=== PATIENT | male | born 1990 | race Caucasian/White ===

== ENCOUNTER 2020-11-25 13:06 | Emergency (ER) | payer SELFPAY ==
[2020-11-25] MEDS ORDERED: Sodium Chloride 0.9% 10 ML Syringe FLUSH PRN (13:29)
[2020-11-25] MEDS ORDERED: Ondansetron 4 MG/2 ML SDV IVPUSH ONE (13:29)
[2020-11-25] MEDS ORDERED: Sodium Chloride 0.9% 1,000 ML IV SCH (13:30)
[2020-11-25] MEDS ORDERED: Dicyclomine 10 MG Cap PO ONE (13:41)
[2020-11-25] MEDS ORDERED: Loperamide 2 MG Cap PO ONE (13:41)
[2020-11-25] MEDS ORDERED: FLU VACC QS2020-21(6MOS UP)/PF 60 MCG/0.5 ML SYRINGE IM ONE (13:45)
--- NOTE | 2020-11-25 13:56 | EDM.PDOC ---
ED HPI GENERAL MEDICAL PROBLEM - General Chief Complaint: Abdominal Pain Stated Complaint: VOMITING Time Seen by Provider: 11/25/20 13:29 Source of Information: Reports: Patient, RN Notes Reviewed History Limitations: Reports: No Limitations - History of Present Illness INITIAL COMMENTS - FREE TEXT/NARRATIVE: Patient is a 29-year-old male who presents to the ED for the evaluation of his gastrointestinal symptoms. Patient notes that since Monday, he has not been able to keep much down for food or fluids, he states he is ate a little bit at times, with some fluids staying down. He notes that he has generalized abdominal cramping, and he has had roughly 10 episodes of vomiting and watery diarrhea since Monday. He has had no fevers or chills, cough or shortness of breath. His significant other in the room states that she had tried to give him some Phenergan, but notes that he vomited this up shortly after taking it, so she did not think it had time to absorb in his body. He has not been around any known sick contacts. He has a history of GERD, but has not been able to keep his medications down for GERD the past few days as well. Patient denies any other past medical issues that he is aware of. Abdominal Pain Score (Numeric/FACES): 4 - Related Data Allergies Allergy/AdvReac Type Severity Reaction Status Date / Time Sulfa (Sulfonamide Allergy Severe Hives Verified 11/25/20 13:21 Antibiotics) Home Meds: Home Meds Esomeprazole Magnesium [Nexium] 40 mg PO DAILY 06/05/18 [History] Famotidine [Pepcid] 40 mg PO DAILY 11/25/20 [History] Ondansetron [Zofran ODT] 4 mg PO Q8H PRN #15 tab.dis 11/25/20 [Rx] Sertraline [Zoloft] 150 mg PO BEDTIME 11/25/20 [History] Past Medical History Gastrointestinal History: Reports: GERD Psychiatric History: Reports: Depression Endocrine/Metabolic History: Reports: Obesity/BMI 30+ - Infectious Disease History Infectious Disease History: Reports: Chicken Pox, Novel Coronavirus - Past Surgical History HEENT Surgical History: Reports: Oral Surgery, Tonsillectomy GI Surgical History: Reports: Appendectomy, EGD Social & Family History - Family History Family Medical History: No Pertinent Family History - Tobacco Use Tobacco Use Status *Q: Never Tobacco User Second Hand Smoke Exposure: No - Caffeine Use Caffeine Use: Reports: Soda - Recreational Drug Use Recreational Drug Use: No - Living Situation & Occupation Living situation: Reports: Single, with Significant Other (Girlfriend) 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 ED EXAM, GI/ABD - Physical Exam Exam: See Below Exam Limited By: No Limitations General Appearance: Alert, WD/WN, No Apparent Distress Respiratory/Chest: No Respiratory Distress, Lungs Clear, Normal Breath Sounds, No Accessory Muscle Use, Chest Non-Tender Cardiovascular: Normal Peripheral Pulses, Regular Rate, Rhythm, No Edema GI/Abdominal Exam: Normal Bowel Sounds, Soft, Non-Tender, No Distention, No Mass Extremities: Normal Inspection, Normal Capillary Refill Neurological: Alert, Oriented, Normal Cognition, No Motor/Sensory Deficits Psychiatric: Normal Affect, Normal Mood Skin Exam: Warm, Dry, Intact, Normal Color, No Rash Course - Vital Signs Last Recorded V/S: Last Vital Signs Temp 98 F 11/25/20 13:16 Pulse 96 11/25/20 13:16 Resp 18 11/25/20 13:16 BP 115/87 11/25/20 13:16 Pulse Ox 97 11/25/20 13:16 - Orders/Labs/Meds Orders: Active Orders 24 hr Category Date Time Status Influenza Vaccine Charge [RC] .DISCHARGE Care 11/25/20 13:32 Active Peripheral IV Care [RC] . DIRECTED Care 11/25/20 13:29 Active UA W/MICROSCOPIC [URIN] Stat Lab 11/25/20 13:29 Ordered Sodium Chloride 0.9% [Normal Saline] 1,000 ml Med 11/25/20 13:30 Ordered IV ASDIRECTED Sodium Chloride 0.9% [Saline Flush] Med 11/25/20 13:29 Ordered 10 ml FLUSH ASDIRECTED PRN Peripheral IV Insertion Adult [OM.PC] Routine Oth 11/25/20 13:29 Ordered Medication Orders Sodium Chloride (Normal Saline) 1,000 mls @ 999 mls/hr IV ASDIRECTED DADA Last Admin: 11/25/20 13:50 Dose: 999 mls/hr Documented by: MATLBIL Sodium Chloride (Sodium Chloride 0.9% 10 Ml Syringe) 10 ml FLUSH ASDIRECTED PRN PRN Reason: Keep Vein Open Labs: Laboratory Tests 11/25/20 11/25/20 Range/Units 13:52 13:52 WBC 9.61 H (4.23-9.07) K/mm3 RBC 5.46 (4.63-6.08) M/mm3 Hgb 15.1 (13.7-17.5) gm/dl Hct 45.5 (40.1-51.0) % MCV 83.3 (79.0-92.2) fl MCH 27.7 (25.7-32.2) pg MCHC 33.2 (32.2-35.5) g/dl RDW Std Deviation 40.5 (35.1-43.9) fL Plt Count 296 (163-337) K/mm3 MPV 10.5 (9.4-12.3) fl Neutrophils % (Manual) 70 H (40-60) % Band Neutrophils % 0 (0-10) % Lymphocytes % (Manual) 18 L (20-40) % Atypical Lymphs % 0 % Monocytes % (Manual) 10 (2-10) % Eosinophils % (Manual) 2 (0.8-7.0) % Basophils % (Manual) 0 L (0.2-1.2) Platelet Estimate Adequate RBC Morph Comment Normal Sodium 140 (136-145) mEq/L Potassium 3.5 (3.5-5.1) mEq/L Chloride 103 (98-107) mEq/L Carbon Dioxide 24 (21-32) mEq/L Anion Gap 16.5 H (5-15) BUN 18 (7-18) mg/dL Creatinine 1.1 (0.7-1.3) mg/dL Est Cr Clr Drug Dosing 111.98 mL/min Estimated GFR (MDRD) > 60 (>60) mL/min BUN/Creatinine Ratio 16.4 (14-18) Glucose 127 H (74-106) mg/dL Calcium 8.1 L (8.5-10.1) mg/dL Total Bilirubin 0.7 (0.2-1.0) mg/dL AST 24 (15-37) U/L ALT 68 H (16-63) U/L Alkaline Phosphatase 71 (46-116) U/L Total Protein 7.6 (6.4-8.2) g/dl Albumin 3.7 (3.4-5.0) g/dl Globulin 3.9 gm/dL Albumin/Globulin Ratio 1.0 (1-2) Lipase 78 (73-393) U/L Meds: Medications Generic Name Dose Route Start Last Admin Trade Name Freq PRN Reason Stop Dose Admin Sodium Chloride 1,000 mls @ 999 mls/hr 11/25/20 13:30 11/25/20 13:50 Normal Saline IV 999 mls/hr ASDIRECTED DADA Administration Sodium Chloride 10 ml 11/25/20 13:29 Sodium Chloride 0.9% 10 Ml Syringe FLUSH ASDIRECTED PRN Keep Vein Open Discontinued Medications Generic Name Dose Route Start Last Admin Trade Name Freq PRN Reason Stop Dose Admin Dicyclomine HCl 20 mg 11/25/20 13:41 11/25/20 13:49 Dicyclomine 10 Mg Cap PO 11/25/20 13:42 20 mg ONETIME ONE Administration Influenza Virus Vaccine 60 mcg 11/25/20 13:45 Flu Vacc [id number](6mos Up)/Pf 60 Mcg/0.5 Ml Syringe IM 11/25/20 13:46 .ONCE ONE Loperamide HCl 4 mg 11/25/20 13:41 11/25/20 13:49 Loperamide 2 Mg Cap PO 11/25/20 13:42 4 mg ONETIME ONE Administration Ondansetron HCl 4 mg 11/25/20 13:29 11/25/20 13:50 Ondansetron 4 Mg/2 Ml Sdv IVPUSH 11/25/20 13:30 4 mg ONETIME ONE Administration - Re-Assessments/Exams Free Text/Narrative Re-Assessment/Exam: 11/25/20 13:58 Patient presents to the ER for his ongoing GI symptoms. Highly likely this could be viral gastroenteritis in nature due to his symptoms reported. We will go ahead and get IV started given some IV fluids, nausea meds, get baseline labs for initial management. 11/25/20 14:50 Patient's labs have resulted, and are essentially unremarkable. I will go ahead and reassess the patient at bedside, and see how he is feeling hopefully get him discharged home with conservative recommendations. Departure - Departure Time of Disposition: 14:56 Disposition: Home, Self-Care 01 Condition: Good Clinical Impression: Viral gastroenteritis - Discharge Information *PRESCRIPTION DRUG MONITORING PROGRAM REVIEWED*: No *COPY OF PRESCRIPTION DRUG MONITORING REPORT IN PATIENT RAHEEM: No Prescriptions: Ondansetron [Zofran ODT] 4 mg PO Q8H PRN #15 tab.dis PRN Reason: Nausea Instructions: Viral Gastroenteritis, Adult, [id number] Referrals: PCP,None [Primary Care Provider] - Forms: ED Department Discharge, ED Return to Work/School Form Additional Instructions: You have been evaluated in the ED for nausea/vomiting/diarrhea. It is likely that this is caused from a viral gastroenteritis. You have received IV fluid in the ED to help with the dehydration from the vomiting and diarrhea. Laboratory evaluation done at today's visit, was unremarkable. Over the next 24-48 hours please try to limit diet to clear liquids and advance as tolerated to a bland diet to alleviate symptoms of nausea/vomiting/diarrhea. Please use the Zofran every 8 hours as needed for nausea. This medication was electronically sent to the [facility] located on [address]. You may use Imodium (loperamide) [id number] for ongoing diarrhea, please take this medication as directed on the back of the label, as this can cause some constipation if you use too much of it. This is only to help try to stop ongoing loose stools Please return to the ED if your symptoms should change or worsen. Sepsis Event Note (ED) - Evaluation Sepsis Screening Result: No Definite Risk - Focused Exam Vital Signs: Vital Signs Temp Pulse Resp BP Pulse Ox 11/25/20 13:16 98 F 96 18 115/87 97 - My Orders Last 24 Hours: My Active Orders 11/25/20 13:29 Peripheral IV Care [RC] . DIRECTED UA W/MICROSCOPIC [URIN] Stat Sodium Chloride 0.9% [Saline Flush] 10 ml FLUSH ASDIRECTED PRN Peripheral IV Insertion Adult [OM.PC] Routine 11/25/20 13:30 Sodium Chloride 0.9% [Normal Saline] 1,000 ml IV ASDIRECTED 11/25/20 13:32 Influenza Vaccine Charge [RC] .DISCHARGE - Assessment/Plan Last 24 Hours: My Active Orders 11/25/20 13:29 Peripheral IV Care [RC] . DIRECTED UA W/MICROSCOPIC [URIN] Stat Sodium Chloride 0.9% [Saline Flush] 10 ml FLUSH ASDIRECTED PRN Peripheral IV Insertion Adult [OM.PC] Routine 11/25/20 13:30 Sodium Chloride 0.9% [Normal Saline] 1,000 ml IV ASDIRECTED 11/25/20 13:32 Influenza Vaccine Charge [RC] .DISCHARGE
== END 2020-11-25 15:40 | disposition home or self-care (01) ==
LOC: JD.ED 13:06
DX: A08.4 Viral intestinal infection, unspecified (principal); K21.9 Gastro-esophageal reflux disease without esophagitis; E66.9 Obesity, unspecified; Z68.36 Body mass index [BMI] 36.0-36.9, adult; Z88.2 Allergy status to sulfonamides; Z79.899 Other long term (current) drug therapy; Z23 Encounter for immunization
CPT/HCPCS: 36415; 80053; 83690; 85007; 85027; 90471; 90686; 96374; 99284; A9270; J2405; J7030; 99283; G0008